=== PATIENT | male | born 1935 | race Caucasian/White ===

== ENCOUNTER 2016-07-13 07:16 | Emergency (ER) | payer MEDICARE, BC ==
[2016-07-13] MEDS ORDERED: MORPHINE 4 MG/ML SYR ONE ×2 (07:41→08:15)
[2016-07-13] MEDS ORDERED: ONDANSETRON 4 MG VIAL ONE (07:41)
[2016-07-13] MEDS ORDERED: CEFTRIAXONE 1 GM VIAL ONE ×2 (08:14→08:20)
[2016-07-13] MEDS ORDERED: SODIUM CHLORIDE 0.9% 100 ML IV ONE (08:15)
[2016-07-13] MEDS ORDERED: SODIUM CHLORIDE 0.9% 1,000 ML ONE (08:15)
== END 2016-07-13 11:38 | disposition home or self-care (01) ==
LOC: ER 07:16
DX: N30.01 Acute cystitis with hematuria (principal); N40.1 Benign prostatic hyperplasia with lower urinary tract symptoms; R10.2 Pelvic and perineal pain; Z79.899 Other long term (current) drug therapy; Z79.82 Long term (current) use of aspirin; Z79.01 Long term (current) use of anticoagulants; Z79.84 Long term (current) use of oral hypoglycemic drugs; Z79.4 Long term (current) use of insulin; E11.9 Type 2 diabetes mellitus without complications; I10 Essential (primary) hypertension; E78.00 Pure hypercholesterolemia, unspecified; Z95.1 Presence of aortocoronary bypass graft
CPT/HCPCS: 36415; 51702; 80053; 81001; 85025; 87077; 87088; 87186; 96361; 96365; 96375; 96376; 99285; J0696; J2270; J2405